=== PATIENT | female | born 1970 | race Caucasian/White ===

== ENCOUNTER 2020-08-03 08:53 | Outpatient (CLI) | payer OTHER | END 2020-08-03 08:54 | disposition home or self-care (01) | LOC: CSHWCC 08:53 | PROVIDERS: ATTEND Nurse Practitioner Family | DX: E11.622 Type 2 diabetes mellitus with other skin ulcer (principal); I70.262 Atherosclerosis of native arteries of extremities with gangrene, left leg; L97.223 Non-pressure chronic ulcer of left calf with necrosis of muscle; R60.0 Localized edema; E78.2 Mixed hyperlipidemia; G89.29 Other chronic pain; I70.203 Unspecified atherosclerosis of native arteries of extremities, bilateral legs; I87.2 Venous insufficiency (chronic) (peripheral); I89.0 Lymphedema, not elsewhere classified | CPT/HCPCS: 11043; 99213; G0463 ==